=== PATIENT | male | born 1935 | race Caucasian/White ===

== ENCOUNTER 2017-02-09 16:01 | Emergency (ER) | payer MEDICARE, OTHER ==
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
[2017-02-09 16:34] LABS: BASOPHIL # 0.1 K/uL (0.0-0.2); BASOPHIL % 0.7 %; EOSINOPHIL # 0.2 K/uL (0.0-0.5); EOSINOPHIL % 2.5 %; HEMATOCRIT 40.2 % (33.0-50.0); HEMOGLOBIN 13.1 g/dL (11.0-16.0); IMMATURE GRANULOCYTE % 0.4 %; LYMPHOCYTE # 0.9 K/uL (0.8-4.0); LYMPHOCYTE % 11.9 %; MCH 30.1 pg (27.0-34.0); MCHC 32.6 gm/dL (32.0-36.5); MCV 92.4 fl (83.0-98.0); MONOCYTE # 0.7 K/uL (0.0-1.0); MONOCYTE % 8.9 %; NEUTROPHIL # (ANC) 5.8 K/uL (1.4-9.0); NEUTROPHIL % 75.6 %; NRBC % 0 /100WBC (0-0.00); PLATELET COUNT 181 K/uL (150-450); RBC 4.35 M/uL (3.50-5.50); RDW-CV 12.7 % (11.9-14.6); WBC 7.6 K/uL (4.0-11.0)
[2017-02-09 16:46] LABS: PROTIME 10.6 SECONDS (9.6-11.1); PTT 27 SECONDS (25-32)
[2017-02-09 16:53] LABS: ALBUMIN 3.4 gm/dL (3.5-5.0); ALK PHOS 102 IU/L (33-138); ALT 20 IU/L (12-78); AST 15 IU/L (10-40); BLOOD UREA NITROGEN 26 mg/dL (6-24); CHLORIDE 108 mMol/L (96-110); CO2 30 mMol/L (22-32); CPK 74 IU/L (35-332); CREATININE 1.3 mg/dL (0.6-1.3); ESTIMATED GFR (MDRD EQUATION) 53; SODIUM 143 mMol/L (135-145); TOTAL BILIRUBIN 0.4 mg/dL (0.0-1.5); TOTAL PROTEIN 6.6 g/dL (6.0-8.4)
== END 2017-02-09 17:58 | disposition disaster alternative care site (69) ==
LOC: GACC 16:01
PROVIDERS: Emergency Medicine
DX: S60.222A Contusion of left hand, initial encounter (principal); S60.221A Contusion of right hand, initial encounter; S50.12XA Contusion of left forearm, initial encounter; S50.11XA Contusion of right forearm, initial encounter; S00.93XA Contusion of unspecified part of head, initial encounter; S60.212A Contusion of left wrist, initial encounter; S60.211A Contusion of right wrist, initial encounter; S80.12XA Contusion of left lower leg, initial encounter; I10 Essential (primary) hypertension; E78.00 Pure hypercholesterolemia, unspecified; Z79.899 Other long term (current) drug therapy; V89.2XXA Person injured in unspecified motor-vehicle accident, traffic, initial encounter; Y92.410 Unspecified street and highway as the place of occurrence of the external cause